=== PATIENT | male | born 1960 | race Caucasian/White ===

== ENCOUNTER 2024-04-17 12:52 | Emergency (ER) | payer BC, OTHER ==
--- NOTE | 2024-04-17 13:45 | EDPHYS ---
Physician Documentation [facility] Name: Uriel Hernandez Age: 63 yrs Sex: Male : 1960 Arrival Date: 04/17/2024 Time: 12:52 Bed 11 Private MD: ED Physician John Espinosa HPI: 04/17 13:45 This 63 yrs old Male presents to ER via Wheelchair with complaints of Fall Injury. sb4 13:45 patient fell onto his left flank twice the past 2 days, has a large bruise in the area. sb4 is complaining of pain with movement, deep breaths, and coughs. no hemoptysis, no difficulty breathing. no head trauma, no blood thinners. Historical: - Allergies: 13:26 No Known Allergies; ap3 - PMHx: 13:26 hydrocephalus; ap3 - Immunization history:: Client reports receiving the 2nd dose of the Covid vaccine. - Infectious Disease History:: Denies. - Social history:: Smoking status: Patient denies any tobacco usage or history of. ROS: 13:45 Constitutional: Negative for fever, chills, and weight loss, sb4 13:45 MS/extremity: Positive for ecchymosis, of the left mid back, 13:45 All other systems are negative, Exam: 13:45 Constitutional: This is a well developed, well nourished patient who is awake, alert, sb4 and in no acute distress. Head/Face: Normocephalic, atraumatic. Eyes: Extra-ocular motions intact. Periorbital areas with no swelling, redness, or edema. ENT: Mucous membranes moist. Respiratory: No increased work of breathing, no retractions or nasal flaring. 13:45 Musculoskeletal/extremity: ecchymosis left mid back. 13:45 Skin: 13:45 Skin: Vital Signs: 13:23 BP 106 / 65; Pulse 76; Resp 18; Temp 97.5; Pulse Ox 100% ; Weight 98.43 kg; Height 6 ap3 ft. 4 in. ; Pain 1/10; 13:23 Body Mass Index 26.41 (98.43 kg, 193.04 cm) ap3 13:23 Pain Scale: Adult ap3 Ernie Coma Score: 13:28 Eye Response: spontaneous(4). Motor Response: obeys commands(6). Verbal Response: ap3 oriented(5). Total: 15. Trauma Score (Adult): 13:28 Eye Response: spontaneous(1); Verbal Response: oriented(1); Motor Response: obeys ap3 commands(2); Systolic BP: > 89 mm Hg(4); Respiratory Rate: 10 to 29 per min(4); Boone Score: 15; Trauma Score: 12 MDM: 13:01 Medical Screening Exam initiated sb4 13:47 Data reviewed: vital signs, nurses notes, and as a result, I will discharge patient. ED sb4 course: patient had outpatient CT head and abdomen w/o contrast prior to coming to ED for shunt placement purposes. CT did not reveal any broken ribs, extensive hematomas, pneumothorax, or hemothorax. will safely discharge home. Administered Medications: No medications were administered Disposition: 16:20 Co-signature as Attending Physician, John Espinosa MD I reviewed the patient's care rn provided by the Advanced Practice Provider and agree with the diagnosis and treatment plan. Disposition Summary: 04/17/24 13:44 Discharge Ordered Notes: Location: Home sb4 Problem: new sb4 Symptoms: are unchanged sb4 Condition: Stable sb4 Diagnosis - Contusion of back wall of thorax sb4 Followup: sb4 - With: Private Physician - When: 1 week - Reason: Recheck today's complaints, Re-evaluation by your physician Discharge Instructions: - Discharge Summary Sheet sb4 - Contusion, [id number] sb4 Forms: - Patient Portal Instructions sb4 - Leadership Thank You Letter sb4 Prescriptions: - Anaprox DS 550 mg Oral Tablet - take 1 tablet ORAL route every 12 hours As needed; 20 tablet; Refills: 0, sb4 Product Selection Permitted - Tramadol 50 mg Oral Tablet - take 1 tablet ORAL route every 8 hours as needed; 12 tablet; Refills: 0, sb4 Product Selection Permitted Signatures: Dispatcher [employer] EDJohn Garzon MD MD rn Prokisch, Amanda, RN RN Idaila Salgado PA-C PA-C sb4 Corrections: (The following items were deleted from the chart) 13:48 13:34 Chest Abdomen Pelvis Wo Con+CT.RAD.BRZ ordered. EDMS EDMS
--- NOTE | 2024-04-17 13:45 | ER ---
Nurse's Notes [facility] Name: Uriel Hernandez Age: 63 yrs Sex: Male : 1960 Arrival Date: 04/17/2024 Time: 12:52 Bed 11 Private MD: Diagnosis: Contusion of back wall of thorax Presentation: 04/17 13:23 Chief complaint: Spouse and/or significant other states: patient fell two nights ago, ap3 and again yesterday onto outside objects creating a bruise and pain on the patients back. patient has a history of frequent falls due to hydrocephalus. Coronavirus screen: At this time, the client does not indicate any symptoms associated with coronavirus-19. Ebola Screen: No symptoms or risks identified at this time. Initial Sepsis Screen: Does the patient meet any 2 criteria? No. Patient's initial sepsis screen is negative. Does the patient have a suspected source of infection? No. Patient's initial sepsis screen is negative. Risk Assessment: Do you want to hurt yourself or someone else? Patient reports no desire to harm self or others. Onset of symptoms is unknown. 13:23 Method Of Arrival: Wheelchair ap3 13:23 Acuity: LEEANNA 4 ap3 Triage Assessment: 13:27 General: Appears in no apparent distress. Behavior is calm, cooperative, appropriate ap3 for age. Pain: Complains of pain in back Aggravated by increased activity, coughing. Neuro: Level of Consciousness is awake, alert, obeys commands, Oriented to person, place, time, situation, Appropriate for age. Cardiovascular: Patient's skin is warm and dry. Respiratory: Reports pain with cough. Historical: - Allergies: 13:26 No Known Allergies; ap3 - PMHx: 13:26 hydrocephalus; ap3 - Immunization history:: Client reports receiving the 2nd dose of the Covid vaccine. - Infectious Disease History:: Denies. - Social history:: Smoking status: Patient denies any tobacco usage or history of. Screenin:27 [facility] ED Fall Risk Assessment (Adult) History of falling in the last 3 months, ap3 including since admission Yes- fall prone (multiple falls) (3 pts) Confusion or Disorientation No (0 pts) Intoxicated or Sedated No (0 pts) Impaired Gait Yes (1 pt) Mobility Assist Device Used No (0 pt) Altered Elimination No (0 pt) Score/Fall Risk Level 3 or more points = High Risk Oriented to surroundings, Maintained a safe environment, Educated pt \T\ family on fall prevention, incl call for assistance when getting out of bed, Assessed \T\ reinforced patient's understanding of fall precautions, Hourly rounding (assess needs \T\ fall precautionary measures) done, Used ambulatory aids as needed (educated on \T\ assisted with), Remained w/in arm's length of patient and in sight while toileting, Offered frequent toileting (1:1 observation), Utilized family, sitter, or virtual energy systems laboratory director as indicated. Abuse screen: Denies threats or abuse. Nutritional screening: No deficits noted. Tuberculosis screening: No symptoms or risk factors identified. Primary Survey: 13:28 NO uncontrolled hemorrhage observed. A: The client is awake and alert. The airway is ap3 patent. Breathing/Chest: Spontaneous respiratory effort, equal unlabored respirations, breath sounds clear bilaterally, regular pattern, symmetrical chest rise and fall. Breathing/Chest: Respiratory effort: spontaneous. Circulation: No external hemorrhage present. Regular and strong central pulse, skin warm/dry/normal color. Disability Client is alert. Exposure/Environment: A warming method has been applied: A warm blanket has been provided to the patient. Reassessment Alertness and Airway: Awake and alert. The airway is patent. Assessment: 14:15 General: Appears in no apparent distress. Behavior is calm, cooperative. Pain: Pain hb currently is 1 out of 10 on a pain scale. Neuro: Level of Consciousness is awake, alert, obeys commands, Oriented to person, place, time, situation. Cardiovascular: Patient's skin is warm and dry. Respiratory: Respiratory effort is even, unlabored, Respiratory pattern is regular, symmetrical. GI: No signs and/or symptoms were reported involving the gastrointestinal system. : No signs and/or symptoms were reported regarding the genitourinary system. EENT: No signs and/or symptoms were reported regarding the EENT system. Derm: Skin is pink, warm \T\ dry. Musculoskeletal: Reports chest wall and back pain. Vital Signs: 13:23 BP 106 / 65; Pulse 76; Resp 18; Temp 97.5; Pulse Ox 100% ; Weight 98.43 kg; Height 6 ap3 ft. 4 in. ; Pain 02/28; 13:23 Body Mass Index 26.41 (98.43 kg, 193.04 cm) ap3 13:23 Pain Scale: Adult ap3 [place] Coma Score: 13:28 Eye Response: spontaneous(4). Motor Response: obeys commands(6). Verbal Response: ap3 oriented(5). Total: 15. Trauma Score (Adult): 13:28 Eye Response: spontaneous(1); Verbal Response: oriented(1); Motor Response: obeys ap3 commands(2); Systolic BP: > 89 mm Hg(4); Respiratory Rate: 10 to 29 per min(4); Ernie Score: 15; Trauma Score: 12 ED Course: 12:55 Patient arrived in ED. mr 13:00 Idalia Beyer PA-C is PHCP. sb4 13:00 John Espinosa MD is Attending Physician. sb4 13:26 Triage completed. ap3 13:28 Patient maintains SpO2 saturation greater than 95% on room air. ap3 13:28 Arm band placed on right wrist. ap3 14:11 Bia Irizarry, RN is Primary Nurse. hb 14:15 No provider procedures requiring assistance completed. Patient did not have IV access hb during this emergency room visit. 14:15 Patient has correct armband on for positive identification. Call light in reach. hb Provided Education on: medications, follow up. Administered Medications: No medications were administered Medication: 14:15 VIS not applicable for this client. hb Outcome: 13:44 Discharge ordered by MD. sb4 14:15 Discharged to home via wheelchair, with significant other, hb 14:15 Condition: stable 14:15 Discharge instructions given to patient, Instructed on discharge instructions, follow up and referral plans. medication usage, Demonstrated understanding of instructions, follow-up care, medications, Prescriptions given X 2, 14:18 Patient left the ED. cc6 Signatures: Felicity Bonilla, Reg Reg mr Bia Irizarry RN RN Mariel Evans RN RN ap3 Idalia Beyer PA-C PA-C sb4 Tanvi Valladares cc6
[2024-04-17 14:43] VITALS: BP 106/65; TEMP 97.5; O2SAT 100
== END 2024-04-17 14:18 | disposition home or self-care (01) ==
LOC: ER 12:52
DX: S20.222A Contusion of left back wall of thorax, initial encounter (principal); W18.30XA Fall on same level, unspecified, initial encounter
CPT/HCPCS: 99283

== ENCOUNTER 2024-04-20 11:31 | Emergency (ER) | payer OTHER, BC ==
[2024-04-20] MEDS ORDERED: TDAP (DIPHTH,PERTUSS(ACELL),TET VAC) 0.5 ML VIAL IMVAC ONE (12:28)
[2024-04-20] MEDS ORDERED: LIDOCAINE 1% MPF 5 ML VIAL ONE (12:28)
--- NOTE | 2024-04-20 13:43 | RAD REPORT ---
EXAM: CT brain without contrast HISTORY: TRAUMA COMPARISON: 04/17/2024 TECHNIQUE: Multiple contiguous axial images were obtained and a CT of the brain without contrast. Sag ittal and coronal reformats were performed. One or more of the following dose reduction techniques were used: Automated exposure control, adjust ment of the mA and/or kV according to patient size, and/or iterative reconstruction. FINDINGS: Prominent ventricular caliber is unchanged. No acute bleed or extra-axial collection. No evidence of midline shift or areas of brain edema. The calvarium is intact. The visualized paranasal sinuses and mastoid air cells are essentially clear . Small right posterior scalp hematoma. IMPRESSION: Prominence of the ventricular system is again seen, unchanged. This is suggestive of hydrocephalus. N o acute intracranial finding otherwise noted. EXAM: CT of the cervical spine without contrast HISTORY: Neck pain, injury TRAUMA TECHNIQUE: Multiple contiguous axial images were obtained in a CT of the cervical spine without contr ast. Sagittal and coronal reformats were performed. FINDINGS: The vertebral bodies demonstrate normal height and alignment. No evidence of acute fracture or subluxation.. Prominent degenerative change with posterior osteophyte C5-6. No prevertebral soft tissue swelling is seen. The posterior facets are well aligned. Normal alignment of the skull base with the cervical spine is seen. Mild carotid atherosclerosis. The lung apices are unremarkable. IMPRESSION: No evidence of acute osseous abnormality of the cervical spine.
--- NOTE | 2024-04-20 14:50 | EDPHYS ---
Physician Documentation [facility] Name: Uriel Hernandez Age: 63 yrs Sex: Male : 1960 Arrival Date: 04/20/2024 Time: 11:31 Bed 12 Private MD: Drake Huitron E ED Physician Rubens Saavedra HPI: 04/20 16:04 This 63 yrs old Male presents to ER via Ambulatory with complaints of Fall Injury, sb4 Laceration - ear. 16:04 Patient with recent diagnosis of hydrocephalus, has been falling a lot at home lately. sb4 Is seeing a neurologist, and has surgery for shunt planned. states that he got up this morning, sustained a mechanical fall, and hit the back of his head on a piece of furniture, sustaining a laceration to his posterior right ear. Bleeding controlled. Tetanus shot is not up-to-date. No LOC. Historical: - Allergies: 12:18 No Known Allergies; me1 - PMHx: 12:18 Hydrocephalus; me1 - PSHx: 12:18 None; me1 - Immunization history:: Adult Immunizations up to date. - Infectious Disease History:: Denies. - Social history:: Smoking status: Patient denies any tobacco usage or history of. ROS: 16:04 Constitutional: Negative for fever, chills, and weight loss, sb4 16:04 Skin: Positive for laceration(s), per HPI, 16:04 All other systems are negative, Exam: 16:04 Constitutional: This is a well developed, well nourished patient who is awake, alert, sb4 and in no acute distress. Head/Face: Normocephalic, atraumatic. Eyes: Extra-ocular motions intact. Periorbital areas with no swelling, redness, or edema. ENT: Mucous membranes moist. Respiratory: No increased work of breathing, no retractions or nasal flaring. 16:04 Head/face: Noted is hematoma, that is mild, of the right parietal area, 16:04 Skin: injury, laceration(s), the wound is approximately 5 cm(s), with a depth of .2 cm(s), of the posterior right ear, that can be described as clean, no foreign body, linear, with mild bleeding, Vital Signs: 12:16 BP 120 / 82; Pulse 74; Resp 16; Temp 97.9; Pulse Ox 97% ; Weight 98.43 kg; Height 6 ft. me1 4 in. ; Pain 2/10; 14:55 BP 121 / 78; Pulse 53; Resp 16; Temp 97.9; Pulse Ox 94% ; me1 12:16 Body Mass Index 26.41 (98.43 kg, 193.04 cm) me1 12:16 Pain Scale: Adult ky1 Laceration: 16:08 Wound Repair of 5cm ( 2.0in ) subcutaneous laceration to right posterior ear. Distal sb4 neuro/vascular/tendon intact. Anesthesia: Local anesthetic administered with 5 mls of 1% lidocaine. Wound prep: Simple cleansing with hibiclenz by me, Wound irrigation with saline by me. Skin closed with 4 5-0 Prolene using simple sutures and sterile technique. Patient tolerated well. MDM: 11:36 Medical Screening Exam initiated sb4 16:09 Data reviewed: vital signs, nurses notes, radiologic studies, and as a result, I will sb4 discharge patient. Historians other than the Patient: Spouse/Significant Other: . Counseling: I had a detailed discussion with the patient and/or guardian regarding the historical points, exam findings, and any diagnostic results supporting the discharge/admit diagnosis, radiology results, the need for outpatient follow up, for definitive care, for suture removal in 1 week, to return to the emergency department if symptoms worsen or persist or if there are any questions or concerns that arise at home. Admission orders: after a detailed discussion of the patient's condition and case, the admit orders are written by me. 04/20 12:25 Order name: CT Head C Spine; Complete Time: 13:43 sb4 Administered Medications: 12:30 Drug: Boostrix Tdap IM 0.5 ml IM once; as a single dose Route: IM; Site: right deltoid; ky1 12:55 Follow up: Response: No adverse reaction me1 12:55 Drug: Lidocaine Infiltration (1 %) 5 mg Infiltration once {Note: Administered by PA. Jes} Route: Infiltration; 14:55 Follow up: Response: No adverse reaction; Pain is decreased [facility] [place] Disposition: 18:15 Co-signature as Attending Physician, Rubens Saavedra MD I reviewed the patient's care rt provided by the Advanced Practice Provider and agree with the diagnosis and treatment plan. Disposition Summary: 04/20/24 14:49 Discharge Ordered Notes: Location: Home sb4 Problem: new sb4 Symptoms: have improved sb4 Condition: Stable sb4 Diagnosis - Laceration without foreign body of right ear sb4 Followup: sb4 - With: Drake Huitron MD - When: 1 week - Reason: Staple/Suture removal Discharge Instructions: - Discharge Summary Sheet sb4 - Laceration Care, Adult, [id number] sb4 - Sutures, [place], or Adhesive Wound Closure, [id number] sb4 Forms: - Patient Portal Instructions sb4 - Leadership Thank You Letter sb4 Signatures: Dispatcher [employer] Idalia Moncada PA-C PA-C sb4 Rubens Saavedra MD MD rt Oly Anaya RN RN me1
--- NOTE | 2024-04-20 14:50 | ER ---
Nurse's Notes [facility] Name: Uriel Hernandez Age: 63 yrs Sex: Male : 1960 Arrival Date: 04/20/2024 Time: 11:31 Bed 12 Private MD: Drake Huitron E Diagnosis: Laceration without foreign body of right ear Presentation: 04/20 12:16 Chief complaint: Spouse and/or significant other states: recent dx of hydrocephalus me1 with some confusion and balance problems causing multiple recent falls. Today patient fell and hit the back of his head and has a laceration behind right ear. Pain 2/10. No LOC. No blood thinners. Coronavirus screen: Vaccine status: Patient reports receiving the 2nd dose of the covid vaccine. Ebola Screen: No symptoms or risks identified at this time. Initial Sepsis Screen: Does the patient meet any 2 criteria? No. Patient's initial sepsis screen is negative. Does the patient have a suspected source of infection? No. Patient's initial sepsis screen is negative. Risk Assessment: Do you want to hurt yourself or someone else? Patient reports no desire to harm self or others. Onset of symptoms was April 20, 2024 at 11:30. 12:16 Method Of Arrival: Ambulatory wa1 12:16 Acuity: LEEANNA 3 me1 Triage Assessment: 12:18 General: Appears comfortable, well groomed, well developed, well nourished, Behavior is me1 calm, cooperative, appropriate for age. Pain: Complains of pain in back of head Pain does not radiate. Pain currently is 2 out of 10 on a pain scale. Quality of pain is described as aching, Pain began suddenly, Is continuous. EENT: laceration behind right ear. Reports pain in right ear. Neuro: Level of Consciousness is awake, alert, obeys commands, Oriented to person, place, time, situation, Appropriate for age. Neuro: Reports intermittent confusion and unsteady gait at times. Cardiovascular: Patient's skin is warm and dry. Respiratory: Airway is patent Trachea midline Respiratory effort is even, unlabored, Respiratory pattern is regular, symmetrical. GI: No signs and/or symptoms were reported involving the gastrointestinal system. Derm: Wound noted right ear Wound is laceration behind right ear. Musculoskeletal: No signs and/or symptoms reported regarding the musculoskeletal system. Injury Description: Head injury sustained to right parietal area is closed, did not have loss of consciousness, Laceration sustained to right ear is clean, not bleeding. Historical: - Allergies: 12:18 No Known Allergies; me1 - PMHx: 12:18 Hydrocephalus; me1 - PSHx: 12:18 None; me1 - Immunization history:: Adult Immunizations up to date. - Infectious Disease History:: Denies. - Social history:: Smoking status: Patient denies any tobacco usage or history of. Screenin:[facility] ED Fall Risk Assessment (Adult) History of falling in the last 3 months, me1 including since admission Yes- fall prone (multiple falls) (3 pts) Confusion or Disorientation Yes (5 pts) Intoxicated or Sedated No (0 pts) Impaired Gait Yes (1 pt) Mobility Assist Device Used No (0 pt) Altered Elimination No (0 pt) Score/Fall Risk Level 0 - 2 = Low Risk Maintained a safe environment, Provided non-skid footwear, Hourly rounding (assess needs \T\ fall precautionary measures) done. Abuse screen: Denies threats or abuse. Nutritional screening: No deficits noted. Tuberculosis screening: No symptoms or risk factors identified. Assessment: 12:21 Reassessment: See triage assessment. me1 Vital Signs: 12:16 BP 120 / 82; Pulse 74; Resp 16; Temp 97.9; Pulse Ox 97% ; Weight 98.43 kg; Height 6 ft. me1 4 in. ; Pain 2/10; 14:55 BP 121 / 78; Pulse 53; Resp 16; Temp 97.9; Pulse Ox 94% ; me1 12:16 Body Mass Index 26.41 (98.43 kg, 193.04 cm) me1 12:16 Pain Scale: Adult me1 ED Course: 11:32 Patient arrived in ED. am2 11:33 Drake Huitron MD is Private Physician. am2 11:34 Idalia Beyer PA-C is [facility]. sb4 11:34 Rubens Saavedra MD is Attending Physician. sb4 12:08 Oly Anaya, JONATHAN is Primary Nurse. me1 12:18 Triage completed. me1 12:18 Arm band placed on Patient placed in an exam room. me1 12:21 Patient has correct armband on for positive identification. Bed in low position. Call me1 light in reach. Side rails up X 1. Provided Education on: POC. Verbalized understanding.. Client placed on continuous cardiac and pulse oximetry monitoring. NIBP monitoring applied. Pulse ox on. NIBP on. 12:21 No provider procedures requiring assistance completed. me1 13:23 CT Head C Spine In Process Unspecified. EDMS 14:49 Drake Huitron MD is Referral Physician. sb4 14:55 Patient did not have IV access during this emergency room visit. me1 Administered Medications: 12:30 Drug: Boostrix Tdap IM 0.5 ml IM once; as a single dose Route: IM; Site: right deltoid; me1 12:55 Follow up: Response: No adverse reaction me1 12:55 Drug: Lidocaine Infiltration (1 %) 5 mg Infiltration once {Note: Administered by Idalia me1 PA. Pepito} Route: Infiltration; 14:55 Follow up: Response: No adverse reaction; Pain is decreased me1 Medication: 12:21 VIS not applicable for this client. me1 Outcome: 14:49 Discharge ordered by . sb4 14:55 Discharged to home via wheelchair, with significant other, me1 14:55 Condition: stable 14:55 Discharge instructions given to patient, significant other, Instructed on discharge instructions, follow up and referral plans. wound care, Demonstrated understanding of instructions, follow-up care, wound care, 14:56 Patient left the ED. me1 Signatures: Dispatcher [employer] EDPA Mariel Cummings am2 Idalia Beyer PA-C PAKalyan sb4 Oly Anaya, RN RN me1
[2024-04-20 15:31] VITALS: TEMP 97.9
[2024-04-20 15:32] VITALS: BP 121/78; O2SAT 94
[2024-04-20] MEDS ORDERED: ONDANSETRON 4 MG/2 ML VIAL IV PRN (19:24)
--- NOTE | 2024-04-20 19:29 | P.HP ---
Certification for Inpatient Patient admitted to: Observation With expected LOS: <2 Midnights Practitioner: I am a practitioner with admitting privileges, knowledge of patient current condition, hospital course, and medical plan of care. Services: Services provided to patient in accordance with Admission requirements found in Title 42 Section 412.3 of the Code of Federal Regulations Patient History Date of Service: 04/20/24 Physical Examination - Vital Signs Temperature: 97.9 F Blood Pressure: 121/78 Pulse: 53 Respirations: 16 Assessment and Plan - Problems (Diagnosis) (1) Suicidal overdose Current Visit: No Status: Acute - Advance Directives Does patient have a Living Will: No Does patient have a Durable POA for Healthcare: No
[2024-04-20] MEDS ORDERED: NA CHLORIDE 0.9% 1,000 ML IV SCH (20:00)
[2024-04-21] MEDS ORDERED: ENOXAPARIN 40 MG/0.4 ML SQ SCH (09:00)
== END 2024-04-20 14:56 | disposition home or self-care (01) ==
LOC: ER 11:31 → ERHOLD 19:24 → UNDOADMOB 19:24
DX: S01.311A Laceration without foreign body of right ear, initial encounter (principal); W18.30XA Fall on same level, unspecified, initial encounter
CPT/HCPCS: 70450; 72125; 96372; 99284; 12013; J2003

== ENCOUNTER 2024-04-28 15:07 | Emergency (ER) | payer OTHER ==
--- NOTE | 2024-04-28 15:43 | ER ---
Nurse's Notes [facility] Name: Uriel Hernandez Age: 63 yrs Sex: Male : 1960 Arrival Date: 04/28/2024 Time: 15:07 Bed DX1 Private MD: Diagnosis: Encounter for removal of sutures Presentation: 04/28 15:15 Chief complaint: Patient states: Here to have simeon removed from back of head. ss [place] placed approximately 1.5 weeks ago. Coronavirus screen: Client denies travel out of the [place] in the last 14 days. Ebola Screen: Patient denies exposure to infectious person. Patient denies travel to an Ebola-affected area in the 21 days before illness onset. Initial Sepsis Screen: Does the patient meet any 2 criteria? No. Patient's initial sepsis screen is negative. Does the patient have a suspected source of infection? No. Patient's initial sepsis screen is negative. Risk Assessment: Do you want to hurt yourself or someone else? Patient reports no desire to harm self or others. Onset of symptoms is unknown. 15:15 Method Of Arrival: Ambulatory ss 15:15 Acuity: LEEANNA 5 ss Historical: - Allergies: 15:16 No Known Allergies; ss - PMHx: 15:48 Hydrocephalus; ss Assessment: 15:48 General: Appears in no apparent distress. comfortable, Behavior is calm, cooperative. ss Neuro: Level of Consciousness is awake, alert, obeys commands, Oriented to person, place. Vital Signs: 15:15 BP 118 / 59; Pulse 66; Resp 16; Temp 98.4(O); Pulse Ox 99% ; Pain 0/10; ss 15:15 Pain Scale: Adult ss ED Course: 15:09 Patient arrived in ED. mr 15:11 Maykel Hernandez MD is Attending Physician. [facility] 15:16 Triage completed. ss 15:16 Arm band placed on right wrist. ss 15:42 No provider procedures requiring assistance completed. Patient did not have IV access aa5 during this emergency room visit. Removal of Removed simeon from scalp [place] site is well healed Patient tolerated well. 15:47 Santa Rodriguez, JONATHAN is Primary Nurse. ss Administered Medications: No medications were administered Outcome: 15:42 Discharge ordered by . [facility] 15:42 Condition: good aa5 15:42 Discharge instructions given to patient, family, Instructed on discharge instructions, follow up and referral plans. Demonstrated understanding of instructions, follow-up care, 17:00 Discharged to home ambulatory, aa5 17:01 Patient left the ED. aa5 Signatures: Maykel Hernandez MD MD cha Rivera, Mary, Reg Reg mr MirandaKailey, RN RN aa5 Santa Rodriguez, RN RN ss
--- NOTE | 2024-04-28 15:43 | EDPHYS ---
Physician Documentation [facility] Name: Uriel Hernandez Age: 63 yrs Sex: Male : 1960 Arrival Date: 04/28/2024 Time: 15:07 Bed DX1 Private MD: Maykel Shields HPI: 04/28 15:38 This 63 yrs old Male presents to ER via Ambulatory with complaints of Suture maribel Removal. 15:38 The patient has sutures on the right ear. Previous treatment: The patient was initially maribel treated 7 day(s) ago. Sutures/simeon progress: The patient has no c/o's. The wound is well-healing with no redness, swelling, discharge, or dehiscence reported. The patient has not experienced similar symptoms in the past. Historical: - Allergies: 15:16 No Known Allergies; ss - PMHx: 15:48 Hydrocephalus; ss ROS: 15:39 Constitutional: Negative for fever, chills, and weight loss, Eyes: Negative for injury, maribel pain, redness, and discharge, ENT: Negative for injury, pain, and discharge, Neck: Negative for injury, pain, and swelling, Cardiovascular: Negative for chest pain, palpitations, and edema, Respiratory: Negative for shortness of breath, cough, wheezing, and pleuritic chest pain, Abdomen/GI: Negative for abdominal pain, nausea, vomiting, diarrhea, and constipation, Back: Negative for injury and pain, : Negative for injury, bleeding, discharge, and swelling, MS/Extremity: Negative for injury and deformity, Neuro: Negative for headache, weakness, numbness, tingling, and seizure, Psych: Negative for depression, anxiety, suicide ideation, homicidal ideation, and hallucinations, Allergy/Immunology: Negative for hives, rash, and allergies, Endocrine: Negative for neck swelling, polydipsia, polyuria, polyphagia, and marked weight changes, Hematologic/Lymphatic: Negative for swollen nodes, abnormal bleeding, and unusual bruising, 15:39 Skin: Positive for laceration , for suture removal, Exam: 15:39 Constitutional: This is a well developed, well nourished patient who is awake, alert, maribel and in no acute distress. Head/Face: Normocephalic, atraumatic. Eyes: Pupils equal round and reactive to light, extra-ocular motions intact. Lids and lashes normal. Conjunctiva and sclera are non-icteric and not injected. Cornea within normal limits. Periorbital areas with no swelling, redness, or edema. ENT: Nares patent. No nasal discharge, no septal abnormalities noted. Tympanic membranes are normal and external auditory canals are clear. Oropharynx with no redness, swelling, or masses, exudates, or evidence of obstruction, uvula midline. Mucous membranes moist. Neck: Trachea midline, no thyromegaly or masses palpated, and no cervical lymphadenopathy. Supple, full range of motion without nuchal rigidity, or vertebral point tenderness. No Meningismus. Chest/axilla: Normal chest wall appearance and motion. Nontender with no deformity. No lesions are appreciated. Cardiovascular: Regular rate and rhythm with a normal S1 and S2. No gallops, murmurs, or rubs. Normal PMI, no JVD. No pulse deficits. Respiratory: Lungs have equal breath sounds bilaterally, clear to auscultation and percussion. No rales, rhonchi or wheezes noted. No increased work of breathing, no retractions or nasal flaring. Abdomen/GI: Soft, non-tender, with normal bowel sounds. No distension or tympany. No guarding or rebound. No evidence of tenderness throughout. Back: No spinal tenderness. No costovertebral tenderness. Full range of motion. Male : Normal genitalia with no discharge or lesions. MS/ Extremity: Pulses equal, no cyanosis. Neurovascular intact. Full, normal range of motion., bilateral aka Neuro: Awake and alert, GCS 15, oriented to person, place, time, and situation. Cranial nerves II-XII grossly intact. Motor strength 5/5 in all extremities. Sensory grossly intact. Cerebellar exam normal. Normal gait. Psych: Awake, alert, with orientation to person, place and time. Behavior, mood, and affect are within normal limits. 15:39 Skin: abscess, not appreciated, cellulitis, is not appreciated, induration, is not appreciated, Vital Signs: 15:15 BP 118 / 59; Pulse 66; Resp 16; Temp 98.4(O); Pulse Ox 99% ; Pain 0/10; ss 15:15 Pain Scale: Adult ss Procedures: 15:40 Suture/Staple removal: Removed 4 sutures, from right ear, site appears well healed, maribel dressed with none. Patient tolerated well. MDM: 15:12 Medical Screening Exam initiated [facility] 15:41 Data reviewed: vital signs, nurses notes. maribel Administered Medications: No medications were administered Disposition Summary: 04/28/24 15:42 Discharge Ordered Notes: Location: Home [facility] Problem: new maribel Symptoms: have improved maribel Condition: Stable maribel Diagnosis - Encounter for removal of sutures maribel Followup: maribel - With: Private Physician - When: 2 - 3 days - Reason: Recheck today's complaints, Continuance of care, Re-evaluation by your physician Discharge Instructions: - Discharge Summary Sheet [facility] - How to Change Your Wound Dressing maribel - Suture Removal, Care After maribel Forms: - Medication Reconciliation Form maribel - Antibiotic Education maribel - Prescription Opioid Use maribel - Patient Portal Instructions [facility] - Leadership Thank You Letter [facility] Signatures: Maykel Hernandez MD MD cha Blanchard, Shelby, RN RN ss
[2024-04-28 17:59] VITALS: BP 118/59; TEMP 98.4; O2SAT 99
== END 2024-04-28 17:01 | disposition home or self-care (01) ==
LOC: ER 15:07
DX: Z48.02 Encounter for removal of sutures (principal)
CPT/HCPCS: 99283